=== PATIENT | female | born 1970 | race Two or more races ===

== ENCOUNTER 2017-08-29 07:38 | Inpatient (IN) | payer OTHER ==
[~2017-08-29] VITALS: Ht 170.2 cm; Wt 95.2 kg
[2017-08-29 08:13] LABS: BASOPHIL % 0.5 % (0-2); PLATELET COUNT 319 x10^3mcL (130-400); RED CELL DISTRIBUTION WIDTH 13.2 % (11.5-14.5)
[2017-08-29 08:14] LABS: CALCIUM 8.2 mg/dL (8.5-10.1); CARBON DIOXIDE 24.1 mmol/L (21-32); CHLORIDE SERUM 106 mmol/L (98-107); CREATININE SERUM 0.8 mg/dL (0.6-1.0); GFR1 > 60 mL/min; GLUCOSE SERUM 108 mg/dL (74-106); POTASSIUM SERUM 3.6 mmol/L (3.5-5.1); SODIUM SERUM 140 mmol/L (136-145)
[2017-08-29 08:18] LABS: ALKALINE PHOSPHATASE 71 U/L (46-116); ALT/SGPT 28 U/L (14-59); AST/SGOT 23 U/L (15-37); BILIRUBIN TOTAL 0.53 mg/dL (0.20-1.00); CHOLESTEROL 194 mg/dL (<200); TOTAL PROTEIN, SERUM 7.3 g/dL (6.4-8.2)
[2017-08-29 08:19] LABS: ALBUMIN 3.1 g/dL (3.4-5.0)
[2017-08-29] MEDS ORDERED: MECLIZINE HYDRO25 M1 PO ×2 (10:09→10:10)
[2017-08-29 10:13] LABS: MAGNESIUM 2.1 mg/dL (1.8-2.4); PHOSPHOROUS 2.9 mg/dL (2.5-4.9)
[2017-08-29 10:21] LABS: AMPHETAMINE QUAL UR NONE DETECTED (NEG <=1000)
[2017-08-29 10:25] LABS: T3 TOTAL 0.94 ng/mL
[2017-08-29 10:42] LABS: FREE T4 0.96 ng/dL (0.76-1.46); FREE THYROXINE INDEX 2.2 ug/dL (1.4-4.5); T4(THYROXINE) 6.5 ug/dL (4.7-13.3)
[2017-08-29 11:29] VITALS: BP 131/80
[2017-08-29 13:30] VITALS: BP 104/62
[2017-08-29 17:33] VITALS: BP 104/68
[2017-08-29 18:59] LABS: UA SPECIFIC GRAVITY 1.015 (1.005-1.035); microscopic required? YES; urine erythrocyte 3+ (NEGATIVE)
[2017-08-29 21:41] VITALS: BP 101/64
[2017-08-30 05:40] VITALS: BP 105/59
[2017-08-30 07:48] LABS: BASOPHIL % 0.5 % (0-2); PLATELET COUNT 294 x10^3mcL (130-400); RED CELL DISTRIBUTION WIDTH 13.4 % (11.5-14.5)
[2017-08-30 08:49] LABS: CHLORIDE SERUM 107 mmol/L (98-107); POTASSIUM SERUM 3.9 mmol/L (3.5-5.1); SODIUM SERUM 140 mmol/L (136-145)
[2017-08-30 10:08] VITALS: BP 120/73
[2017-08-30 10:25] LABS: CALCIUM 8.1 mg/dL (8.5-10.1); CARBON DIOXIDE 24.1 mmol/L (21-32); CREATININE SERUM 0.7 mg/dL (0.6-1.0); GFR1 > 60 mL/min; GLUCOSE SERUM 89 mg/dL (74-106); MAGNESIUM 2.1 mg/dL (1.8-2.4); PHOSPHOROUS 3.1 mg/dL (2.5-4.9)
[2017-08-30 14:00] VITALS: BP 112/73
[2017-08-30 18:00] VITALS: BP 119/79
[2017-08-30 21:28] VITALS: BP 116/67
[2017-08-31 05:58] VITALS: BP 114/79
[2017-08-31 06:31] LABS: BASOPHIL % 0.5 % (0-2); PLATELET COUNT 302 x10^3mcL (130-400); RED CELL DISTRIBUTION WIDTH 13.1 % (11.5-14.5)
[2017-08-31 06:46] LABS: CALCIUM 8.1 mg/dL (8.5-10.1); CARBON DIOXIDE 25.2 mmol/L (21-32); CHLORIDE SERUM 106 mmol/L (98-107); CREATININE SERUM 0.6 mg/dL (0.6-1.0); GFR1 > 60 mL/min; GLUCOSE SERUM 94 mg/dL (74-106); POTASSIUM SERUM 3.6 mmol/L (3.5-5.1); SODIUM SERUM 139 mmol/L (136-145)
[2017-08-31 10:26] VITALS: BP 112/67
[2017-08-31 11:07] VITALS: BP 112/67
== END 2017-08-31 13:20 | disposition home or self-care (01) | DRG 53 ==
LOC: ED 07:38 → DU 09:36
PROVIDERS: Specialist; ADMIT Family Medicine Sports Medicine
DX: R56.9 Unspecified convulsions (principal); I42.9 Cardiomyopathy, unspecified; E44.0 Moderate protein-calorie malnutrition; E83.51 Hypocalcemia; I08.1 Rheumatic disorders of both mitral and tricuspid valves; R55 Syncope and collapse; E04.2 Nontoxic multinodular goiter; E78.5 Hyperlipidemia, unspecified; D64.9 Anemia, unspecified; E66.9 Obesity, unspecified; Z68.32 Body mass index [BMI] 32.0-32.9, adult
CPT/HCPCS: 83880; 84439; 90658; G0480; J2405; J7030; Q0092

== ENCOUNTER 2017-10-16 11:02 | Inpatient (IN) | payer OTHER ==
[~2017-10-16] VITALS: Ht 172.7 cm; Wt 94.1 kg
[~2017-10-16 11:02] MED LIST: MECLIZINE HYDRO25 M1 PO
[2017-10-16 11:39] LABS: BASOPHIL % 0.3 % (0-2); PLATELET COUNT 333 x10^3mcL (130-400); RED CELL DISTRIBUTION WIDTH 13.3 % (11.5-14.5)
[2017-10-16 11:50] LABS: CALCIUM 8.3 mg/dL (8.5-10.1); CARBON DIOXIDE 24.2 mmol/L (21-32); CHLORIDE SERUM 105 mmol/L (98-107); CREATININE SERUM 0.7 mg/dL (0.6-1.0); GFR1 > 60 mL/min; GLUCOSE SERUM 116 mg/dL (74-106); POTASSIUM SERUM 4.2 mmol/L (3.5-5.1); SODIUM SERUM 139 mmol/L (136-145)
[2017-10-16 11:57] LABS: ALKALINE PHOSPHATASE 81 U/L (46-116); ALT/SGPT 31 U/L (14-59); AST/SGOT 16 U/L (15-37); BILIRUBIN TOTAL 0.33 mg/dL (0.20-1.00); TOTAL PROTEIN, SERUM 6.9 g/dL (6.4-8.2)
[2017-10-16 11:58] LABS: ALBUMIN 3.2 g/dL (3.4-5.0)
[2017-10-16 14:59] LABS: CHOLESTEROL/HDL RATIO 3.4; MAGNESIUM 1.8 mg/dL (1.8-2.4); PHOSPHOROUS 2.9 mg/dL (2.5-4.9)
[2017-10-16 15:08] LABS: FREE T4 1.06 ng/dL (0.76-1.46); FREE THYROXINE INDEX 2.9 ug/dL (1.4-4.5); T4(THYROXINE) 7.7 ug/dL (4.7-13.3)
[2017-10-16 15:09] LABS: T3 TOTAL 0.98 ng/mL
[2017-10-16 15:24] VITALS: BP 122/69
[2017-10-16 15:35] LABS: microscopic required? YES; urine erythrocyte 2+ (NEGATIVE)
[2017-10-16 16:05] LABS: AMPHETAMINE QUAL UR NONE DETECTED (NEG <=1000)
[2017-10-16 16:45] VITALS: BP 122/74
[2017-10-16 20:00] VITALS: BP 111/62
[2017-10-17 05:45] VITALS: BP 101/54
[2017-10-17 09:44] VITALS: BP 104/54
[2017-10-17 11:30] VITALS: BP 104/54
[2017-10-17 13:37] VITALS: BP 111/71
[2017-10-17] MEDS ORDERED: DIL100 PO ×2 (13:37→14:16)
== END 2017-10-17 14:37 | disposition home or self-care (01) | DRG 53 ==
LOC: ED 11:02 → DU 13:50
PROVIDERS: Emergency Medicine; Family Medicine
DX: G40.409 Other generalized epilepsy and epileptic syndromes, not intractable, without status epilepticus (principal); E44.0 Moderate protein-calorie malnutrition; R42 Dizziness and giddiness; E78.5 Hyperlipidemia, unspecified; E66.9 Obesity, unspecified; Z68.31 Body mass index [BMI] 31.0-31.9, adult
CPT/HCPCS: 84439; J2060; J7030

== ENCOUNTER 2017-12-11 11:01 | Emergency (ER) | payer SELFPAY ==
[~2017-12-11] VITALS: Ht 165.1 cm; Wt 90.7 kg
[~2017-12-11 11:01] MED LIST changes: +DIL100 PO
[2017-12-11 11:15] VITALS: Ht 165.1 cm; Wt 90.7 kg
[2017-12-11 11:57] LABS: CALCIUM 8.5 mg/dL (8.5-10.1); CARBON DIOXIDE 21.4 mmol/L (21-32); CHLORIDE SERUM 102 mmol/L (98-107); CREATININE SERUM 0.9 mg/dL (0.6-1.0); GFR1 > 60 mL/min; GLUCOSE SERUM 154 mg/dL (74-106); POTASSIUM SERUM 3.2 mmol/L (3.5-5.1); SODIUM SERUM 141 mmol/L (136-145)
[2017-12-11 11:59] LABS: BASOPHIL % 0.7 % (0-2); PLATELET COUNT 342 x10^3mcL (130-400); RED CELL DISTRIBUTION WIDTH 14.1 % (11.5-14.5)
[2017-12-11 12:02] LABS: ALBUMIN 3.7 g/dL (3.4-5.0); ALKALINE PHOSPHATASE 153 U/L (46-116); ALT/SGPT 105 U/L (14-59); AST/SGOT 59 U/L (15-37); BILIRUBIN TOTAL 0.4 mg/dL (0.20-1.00); TOTAL PROTEIN, SERUM 7.8 g/dL (6.4-8.2)
[2017-12-11 14:37] VITALS: BP 111/55
== END 2017-12-11 14:37 | disposition home or self-care (01) ==
LOC: ED 11:01
PROVIDERS: Emergency Medicine
DX: R56.9 Unspecified convulsions (principal); R94.5 Abnormal results of liver function studies
CPT/HCPCS: J2405; J8597

== ENCOUNTER 2018-12-26 10:36 | Emergency (ER) | payer OTHER ==
[~2018-12-26] VITALS: Ht 170.2 cm; Wt 98.9 kg
[2018-12-26 18:36] VITALS: BP 152/91
== END 2018-12-26 18:36 | disposition home or self-care (01) ==
LOC: ED 10:36
DX: J20.9 Acute bronchitis, unspecified (principal); R10.9 Unspecified abdominal pain; R11.10 Vomiting, unspecified; R19.7 Diarrhea, unspecified
CPT/HCPCS: 87804

== ENCOUNTER 2019-12-31 12:37 | Emergency (ER) | payer SELFPAY ==
[~2019-12-31] VITALS: Ht 172.7 cm; Wt 95.3 kg
[2019-12-31 12:42] VITALS: Ht 172.7 cm; Wt 95.3 kg
[2019-12-31 13:39] LABS: BASOPHIL % 0.6 % (0-2); PLATELET COUNT 279 x10^3mcL (130-400); RED CELL DISTRIBUTION WIDTH 12.9 % (11.5-14.5)
[2019-12-31 13:54] LABS: ALKALINE PHOSPHATASE 180 U/L (46-116); ALT/SGPT 63 U/L (14-59); AST/SGOT 43 U/L (15-37); BILIRUBIN TOTAL 0.25 mg/dL (0.20-1.00); CALCIUM 8.4 mg/dL (8.5-10.1); CARBON DIOXIDE 20.2 mmol/L (21-32); CHLORIDE SERUM 106 mmol/L (98-107); GFR1 > 60 mL/min; GLUCOSE SERUM 151 mg/dL (74-106); SODIUM SERUM 144 mmol/L (136-145); TOTAL PROTEIN, SERUM 7.4 g/dL (6.4-8.2)
[2019-12-31 14:02] LABS: ALBUMIN 3.3 g/dL (3.4-5.0)
[2019-12-31 14:04] LABS: POTASSIUM SERUM 2.8 mmol/L (3.5-5.1)
[2019-12-31 14:59] LABS: UA SPECIFIC GRAVITY >=1.030 (1.005-1.035); microscopic required? YES; urine erythrocyte 2+ (NEGATIVE)
[2019-12-31 15:08] LABS: AMPHETAMINE QUAL UR NONE DETECTED (See below)
[2019-12-31 17:57] VITALS: BP 134/78
== END 2019-12-31 17:57 | disposition home or self-care (01) ==
LOC: ED 12:37
PROVIDERS: Emergency Medicine
DX: G40.909 Epilepsy, unspecified, not intractable, without status epilepticus (principal)
CPT/HCPCS: J1953; J2060; J3480; J7040; Q0092

== ENCOUNTER 2020-01-11 08:55 | Emergency (ER) | payer MEDICAID ==
[~2020-01-11] VITALS: Ht 162.6 cm; Wt 81.6 kg
[2020-01-11 09:20] LABS: BASOPHIL % 0.5 % (0-2); PLATELET COUNT 322 x10^3mcL (130-400); RED CELL DISTRIBUTION WIDTH 12.9 % (11.5-14.5)
[2020-01-11 09:30] VITALS: Ht 162.6 cm; Wt 81.6 kg
[2020-01-11 10:13] LABS: ALKALINE PHOSPHATASE 160 U/L (46-116); ALT/SGPT 45 U/L (14-59); AST/SGOT 30 U/L (15-37); BILIRUBIN TOTAL 0.43 mg/dL (0.20-1.00); CALCIUM 8.7 mg/dL (8.5-10.1); CARBON DIOXIDE 25.8 mmol/L (21-32); CHLORIDE SERUM 106 mmol/L (98-107); CREATININE SERUM 0.9 mg/dL (0.6-1.0); GFR1 > 60 mL/min; GLUCOSE SERUM 117 mg/dL (74-106); POTASSIUM SERUM 3.2 mmol/L (3.5-5.1); SODIUM SERUM 143 mmol/L (136-145); TOTAL PROTEIN, SERUM 7.3 g/dL (6.4-8.2)
[2020-01-11 10:18] LABS: ALBUMIN 3.3 g/dL (3.4-5.0)
[2020-01-11 13:40] VITALS: BP 106/72
== END 2020-01-11 13:40 | disposition home or self-care (01) ==
LOC: ED 08:55
PROVIDERS: Emergency Medicine
DX: R56.9 Unspecified convulsions (principal)
CPT/HCPCS: J1165

== ENCOUNTER 2020-12-09 15:55 | Emergency (ER) | payer OTHER, MEDICAID ==
[~2020-12-09] VITALS: Ht 170.2 cm; Wt 99.8 kg
[2020-12-09 16:13] VITALS: Ht 170.2 cm; Wt 99.8 kg
[2020-12-09] MEDS ORDERED: ONDANSETRON4 M3 PO (19:17)
[2020-12-09] MEDS ORDERED: NAPROXEN375 MG PO (19:17)
[2020-12-09] MEDS ORDERED: ACETAMINOPHEN-H1 TA1 PO (19:17)
[2020-12-11 10:14] VITALS: BP 122/70
== END 2020-12-11 10:14 | disposition home or self-care (01) ==
LOC: ED 15:55
DX: S93.402A Sprain of unspecified ligament of left ankle, initial encounter (principal); S39.91XA Unspecified injury of abdomen, initial encounter; S29.9XXA Unspecified injury of thorax, initial encounter; V43.52XA Car driver injured in collision with other type car in traffic accident, initial encounter; Y93.I9 Activity, other involving external motion; Y92.488 Other paved roadways as the place of occurrence of the external cause; Y99.8 Other external cause status